=== PATIENT | male | born 1960 | race Caucasian/White ===

== ENCOUNTER 2016-11-07 18:53 | Inpatient (IN) | payer MEDICARE, OTHER ==
[2016-11-07] MEDS ORDERED: Rocephin 1000 MG INJ** 1,000 MG in Sodium Chloride 0.9% 100 ML IVPB 100 ML IV ONE (19:01)
[2016-11-07] MEDS ORDERED: Phenergan 25 MG INJ IV ONE (19:01)
[2016-11-07] MEDS ORDERED: Xopenex 1.25 MG/0.5 ML UD NEBULE IH ONE ×2 (19:01→19:33)
[2016-11-07] MEDS ORDERED: Zithromax 500 MG/ 250 ML NaCl Premix 500 MG/250 ML IVPB IV STA (19:01)
[2016-11-07] MEDS ORDERED: Robitussin-Dm Syrup PO ONE (19:01)
--- NOTE | 2016-11-07 19:06 | ERPHSYRPT ---
- History of Present Illness Time Seen by Provider: 11/07/16 18:56 Source: patient Exam Limitations: no limitations Physician History: FOR THE PAST 12 HOURS PT HAS HAD COUGH PRODUCTIVE OF CLEAR PHLEGM, DIAPHORESIS AND NAUSEA WITH COUGHING ONLY; FOR THE PAST 5 HOURS SHORTNESS OF AIR. PT DENIES ABDOMINAL PAIN, VOMITING, RASH. Allergies/Adverse Reactions: ibuprofen Adverse Reaction (Verified 11/07/16 19:07) feels like he is drinking gasoline, sick Home Medications: No Reportable Medications [No Reported Medications] 11/07/16 [History] Hx Tetanus, Diphtheria Vaccination/Date Given: (unknown) Hx Influenza Vaccination/Date Given: Yes Hx Pneumococcal Vaccination/Date Given: Yes - Review of Systems Respiratory: Cough, Dyspnea Abdominal/Gastrointestinal: Nausea, No Abdominal Pain, No Vomiting Endocrine: Excessive Sweating All Other Systems: Reviewed and Negative - Past Medical History Cardiac History: No Pertinent History Respiratory History: COPD Musculoskeletal History: Degenerative Disk Disease, Other (Chronic low back pain and right leg radiculopathy) GI Medical History: Hernia Psycho-Social History: Anxiety, Depression - Past Surgical History Past Surgical History: Yes Musculoskeletal: Orthopedic Surgery Other Surgical History: back surgery, tonsils - Social History Smoking Status: Former smoker Patient Lives Alone: No - Nursing Vital Signs Nursing Vital Signs: Initial Vital Signs Temperature 98.2 F 11/07/16 18:56 Pulse Rate 102 H 11/07/16 18:56 Respiratory Rate 24 11/07/16 18:56 Blood Pressure 195/109 11/07/16 18:56 O2 Sat by Pulse Oximetry 88 L 11/07/16 18:56 Pain Scale Pain Intensity 0 - Physical Exam General Appearance: mild distress, alert Eye Exam: PERRL/EOMI Ears, Nose, Throat Exam: TMs normal, moist mucous membranes, pharyngeal erythema , other (CLEAR DISCHARGE FROM BOTH NARRES) Neck Exam: normal inspection Respiratory Exam: respiratory distress (MILD), rhonchi, wheezing Cardiovascular Exam: normal heart sounds Gastrointestinal/Abdomen Exam: soft, normal bowel sounds Back Exam: normal range of motion Extremity Exam: normal inspection, No pedal edema Neurologic Exam: alert, cooperative Skin Exam: warm, dry SpO2 Interpretation: hypoxic SpO2: 86 Oxygen Delivery: Room Air - Course Nursing assessment & vital signs reviewed: Yes EKG Interpreted by Me: RATE ([id number]), Sinus Rhythm, NORMAL AXIS, NORMAL INTERVALS - Radiology Exams Chest X-ray Interpretation: Interpreted by me, Pneumonia Ordered Tests: Active Orders 24 hr Category Date Time Status Wheelchair Driver STAT Care 11/07/16 19:02 Active Clean Catch Urine Specimen STAT Care 11/07/16 20:25 Active EKG-ER Only STAT Care 11/07/16 19:01 Active IV Insertion STAT Care 11/07/16 19:01 Active Oxygen-ED Only NASAL CANNULA 2 lpm Care 11/07/16 19:01 Active Pulse Oximetry (ED) STAT Care 11/07/16 19:01 Active CHEST 2 VIEWS (PA AND LAT) Stat Exams 11/07/16 19:02 Taken AMYLASE Stat Lab 11/07/16 19:00 Completed BLOOD CULTURE Stat Lab 11/07/16 19:25 Received CBC W DIFF Stat Lab 11/07/16 19:00 Completed CMP Stat Lab 11/07/16 19:00 Completed CULTURE, THROAT Stat Lab 11/07/16 20:00 Received CULTURE,SPUTUM Stat Lab 11/07/16 19:04 Received D-DIMER QUANTITATION Stat Lab 11/07/16 19:14 Completed Erythrocyte Sedimentation Rate Stat Lab 11/07/16 19:00 Completed LIPASE Stat Lab 11/07/16 19:00 Completed STREP SCREEN-BETA A Stat Lab 11/07/16 20:00 Completed TROPONIN Q3H Lab 11/07/16 19:00 Completed TROPONIN Q3H Lab 11/07/16 22:15 Ordered UA W/RFX UR CULTURE Stat Lab 11/07/16 19:04 Ordered Respiratory Nebulizer STAT RT 11/07/16 19:30 Active Medication Summary Generic Name Dose Route Start Last Admin Trade Name Freq PRN Reason Stop Dose Admin Sodium Chloride 1,000 mls @ 100 mls/hr 11/07/16 19:15 11/07/16 19:26 Sodium Chloride 0.9% 1000 Ml IV 12/07/16 19:14 100 mls/hr .Q10H [place] Administration Discontinued Medications Generic Name Dose Route Start Last Admin Trade Name Freq PRN Reason Stop Dose Admin Guaifenesin/Codeine Phosphate Confirm 11/07/16 19:16 Robitussin Ac Syrup Unit Dose Cup Administered 11/07/16 19:17 Dose 10 ml .ROUTE .STK-MED ONE Guaifenesin/Dextromethorphan 10 ml 11/07/16 19:01 11/07/16 19:26 Robitussin-Dm Syrup PO 11/07/16 19:02 10 ml STAT ONE Administration Ceftriaxone Sodium 1,000 mg/ 100 mls @ 100 mls/hr 11/07/16 19:01 11/07/16 19: 26 Sodium Chloride IV 11/07/16 20:00 100 mls/hr STAT ONE Administration Azithromycin 500 mg in 250 mls @ 250 mls/hr 11/07/16 19:01 11/07/16 19:26 Zithromax 500 Mg/ 250 Ml Nacl Premix IV 11/07/16 20:00 250 mls/hr STAT STA Administration Azithromycin Confirm 11/07/16 19:16 Zithromax 500 Mg/ 250 Ml Nacl Premix Administered 11/07/16 19:17 Dose 500 mg in 250 mls @ ud IV .STK-MED ONE Ceftriaxone Sodium/Dextrose Confirm 11/07/16 19:16 Rocephin 1 Gm-D5w 50 Ml Bag Administered 11/07/16 19:17 Dose 1 g in 50 mls @ ud IV .STK-MED ONE Levalbuterol HCl 1.25 mg 11/07/16 19:01 11/07/16 19:32 Xopenex 1.25 Mg/0.5 Ml Ud Nebule IH 11/07/16 19:02 1.25 mg STAT ONE Administration Levalbuterol HCl Confirm 11/07/16 19:33 Xopenex 1.25 Mg/0.5 Ml Ud Nebule Administered 11/07/16 19:34 Dose 1.25 mg IH .STK-MED ONE Promethazine HCl 12.5 mg 11/07/16 19:01 11/07/16 19:25 Phenergan 25 Mg Inj IV 11/07/16 19:02 12.5 mg STAT ONE Administration Promethazine HCl Confirm 11/07/16 19:15 Phenergan 25 Mg Inj Administered 11/07/16 19:16 Dose 25 mg .ROUTE .STK-MED ONE Sodium Chloride Confirm 11/07/16 19:33 Sodium Chloride 3 Ml Ud Nebules Administered 11/07/16 19:34 Dose 3 ml IH .STK-MED ONE Lab/Rad Data: Laboratory Result Diagrams 11/07/16 19:00 11/07/16 19:00 Laboratory Results 11/07/16 11/07/16 11/07/16 Range/Units 20:00 19:22 19:14 WBC (4.0-10.5) K/mm3 RBC (4.1-5.6) M/mm3 Hgb (12.5-18.0) gm/dl Hct (42-50) % MCV (78-100) fl MCH (26-32) pg MCHC (32-36) g/dl RDW (11.5-14.0) % Plt Count (150-450) K/mm3 MPV (6-9.5) fl Gran % (36.0-66.0) % Lymphocytes % (24.0-44.0) % Monocytes % (0.0-12.0) % Eosinophils % (0.00-5.0) % Basophils % (0.0-0.4) % Basophils # (0-0.4) ESR (0-15) mm/hr D-Dimer 430 (0-500) ng/mL Sodium (136-145) mEq/L Potassium (3.5-5.1) mEq/L Chloride (98-107) mEq/L Carbon Dioxide (21-32) mEq/L Anion Gap (5-15) MEQ/L BUN (9-20) mg/dL Creatinine (0.55-1.30) mg/dl Estimated GFR ML/MIN Glucose (70-110) MG/DL Calcium (8.5-10.1) mg/dL Total Bilirubin (0.2-1.0) mg/dL AST (15-37) U/L ALT (12-78) U/L Alkaline Phosphatase (46-116) U/L Troponin I (0.000-0.056) ng/ml Serum Total Protein (6.4-8.2) gm/dL Albumin (3.4-5.0) g/dL Amylase (25-115) U/L Lipase (73-393) U/L Influenza Type A Ag NEGATIVE (NEGATIVE) Influenza Type B Ag NEGATIVE (NEGATIVE) RSV (PCR) NEGATIVE (Negative) Streptococcus Screen NEGATIVE (Negative) 11/07/16 11/07/16 11/07/16 Range/Units 19:00 19:00 19:00 WBC (4.0-10.5) K/mm3 RBC (4.1-5.6) M/mm3 Hgb (12.5-18.0) gm/dl Hct (42-50) % MCV (78-100) fl MCH (26-32) pg MCHC (32-36) g/dl RDW (11.5-14.0) % Plt Count (150-450) K/mm3 MPV (6-9.5) fl Gran % (36.0-66.0) % Lymphocytes % (24.0-44.0) % Monocytes % (0.0-12.0) % Eosinophils % (0.00-5.0) % Basophils % (0.0-0.4) % Basophils # (0-0.4) ESR 13 (0-15) mm/hr D-Dimer (0-500) ng/mL Sodium (136-145) mEq/L Potassium (3.5-5.1) mEq/L Chloride (98-107) mEq/L Carbon Dioxide (21-32) mEq/L Anion Gap (5-15) MEQ/L BUN (9-20) mg/dL Creatinine (0.55-1.30) mg/dl Estimated GFR ML/MIN Glucose (70-110) MG/DL Calcium (8.5-10.1) mg/dL Total Bilirubin (0.2-1.0) mg/dL AST (15-37) U/L ALT (12-78) U/L Alkaline Phosphatase (46-116) U/L Troponin I < 0.017 (0.000-0.056) ng/ml Serum Total Protein (6.4-8.2) gm/dL Albumin (3.4-5.0) g/dL Amylase 33 (25-115) U/L Lipase 107 (73-393) U/L Influenza Type A Ag (NEGATIVE) Influenza Type B Ag (NEGATIVE) RSV (PCR) (Negative) Streptococcus Screen (Negative) 11/07/16 11/07/16 Range/Units 19:00 19:00 WBC 8.2 (4.0-10.5) K/mm3 RBC 4.90 (4.1-5.6) M/mm3 Hgb 15.2 (12.5-18.0) gm/dl Hct 44.9 (42-50) % MCV 91.6 (78-100) fl MCH 31.0 (26-32) pg MCHC 33.9 (32-36) g/dl RDW 15.1 H (11.5-14.0) % Plt Count 251 (150-450) K/mm3 MPV 10.5 H (6-9.5) fl Gran % 70.8 H (36.0-66.0) % Lymphocytes % 14.8 L (24.0-44.0) % Monocytes % 10.6 (0.0-12.0) % Eosinophils % 3.2 (0.00-5.0) % Basophils % 0.6 (0.0-0.4) % Basophils # 0.05 (0-0.4) ESR (0-15) mm/hr D-Dimer (0-500) ng/mL Sodium 141 (136-145) mEq/L Potassium 3.9 (3.5-5.1) mEq/L Chloride 102 (98-107) mEq/L Carbon Dioxide 26.5 (21-32) mEq/L Anion Gap 16.2 H (5-15) MEQ/L BUN 10 (9-20) mg/dL Creatinine 0.94 (0.55-1.30) mg/dl Estimated GFR > 60 ML/MIN Glucose 101 (70-110) MG/DL Calcium 9.2 (8.5-10.1) mg/dL Total Bilirubin 0.70 (0.2-1.0) mg/dL AST 23 (15-37) U/L ALT 40 (12-78) U/L Alkaline Phosphatase 43 L (46-116) U/L Troponin I (0.000-0.056) ng/ml Serum Total Protein 8.7 H (6.4-8.2) gm/dL Albumin 4.2 (3.4-5.0) g/dL Amylase (25-115) U/L Lipase (73-393) U/L Influenza Type A Ag (NEGATIVE) Influenza Type B Ag (NEGATIVE) RSV (PCR) (Negative) Streptococcus Screen (Negative) - Progress Discussed with : Nicanor ([id number]) - Departure Time of Disposition: 20:39 Departure Disposition: Observation Clinical Impression: DEPRESSION, DYSPNEA, PNEUMONIA, COPD, ANXIETY Condition: Stable Critical Care Time: No Referrals: HEIKE ODOM [Primary Care Provider] -
[2016-11-07] MEDS ORDERED: Phenergan 25 MG INJ ONE (19:15)
[2016-11-07] MEDS ORDERED: ROCEPHIN 1 Gm-D5w 50 ml Bag** 1 G/50 ML IVPB IV ONE (19:16)
[2016-11-07] MEDS ORDERED: Zithromax 500 MG/ 250 ML NaCl Premix 500 MG/250 ML IVPB IV ONE (19:16)
[2016-11-07] MEDS ORDERED: Robitussin AC Syrup Unit Dose Cup ONE (19:16)
[2016-11-07] MEDS: Sodium Chloride 0.9% 1000 ML 1,000 ML IV SCH (19:26)
[2016-11-07 19:33] LABS: LIPASE 107 U/L (73-393)
[2016-11-07] MEDS ORDERED: Sodium Chloride 3 ML UD NEBULES IH ONE (19:33)
[2016-11-07 19:34] LABS: BASOPHIL % 0.6 % (0.0-0.4); Eosinophil % 3.2 % (0.00-5.0); Granulocytes % 70.8 % (36.0-66.0); Lymphocytes % 14.8 % (24.0-44.0); Mean Cell Volume 91.6 fl (78-100); Mean Platelet Volume 10.5 fl (6-9.5); Monocytes % 10.6 % (0.0-12.0); Platelet Count 251 K/mm3 (150-450); Red Cell Distribution Width 15.1 % (11.5-14.0); White Blood Count 8.2 K/mm3 (4.0-10.5)
[2016-11-07 19:38] LABS: ALBUMIN 4.2 g/dL (3.4-5.0); ALKALINE PHOSPHATASE 43 U/L (46-116); ANION GAP 16.2 MEQ/L (5-15); BLOOD UREA NITROGEN 10 mg/dL (9-20); CHLORIDE 102 mEq/L (98-107); Carbon Dioxide 26.5 mEq/L (21-32); Glucose 101 MG/DL (70-110); Potassium 3.9 mEq/L (3.5-5.1); SGOT/AST 23 U/L (15-37); SGPT/ALT 40 U/L (12-78); SODIUM 141 mEq/L (136-145); Total Protein 8.7 gm/dL (6.4-8.2)
[2016-11-07 20:40] LABS: ADD URINE CULTURE? NO (NO); Bilirubin NEGATIVE (NEGATIVE); Blood NEGATIVE Ery/ul (0-5); COMPLETE URINE MICROSCOPIC? NO; Collection Type CLEAN CATCH; Glucose NEGATIVE (NEGATIVE); Leukocyte Esterase NEGATIVE (NEGATIVE)
[2016-11-07] MEDS ORDERED: Phenergan 25 MG INJ IV PRN (21:55)
[2016-11-07] MEDS ORDERED: Sodium Chloride 0.9% 1000 ML 1,000 ML IV SCH (21:55)
[2016-11-07] MEDS ORDERED: PROVENTIL 2.5 MG/3 ML NEB IH PRN (21:55)
[2016-11-07] MEDS ORDERED: TYLENOL 325 MG PO PRN (21:55)
[2016-11-07] MEDS: DUONEB 0.5-3 MG/3 ml Neb IH SCH (22:55)
[2016-11-08] MEDS: DUONEB 0.5-3 MG/3 ml Neb IH SCH ×6 (03:15→23:03)
[2016-11-08] MEDS: Sodium Chloride 0.9% 1000 ML 1,000 ML IV SCH ×2 (03:24→20:01)
[2016-11-08 05:56] LABS: BASOPHIL % 0.5 % (0.0-0.4); Eosinophil % 0.9 % (0.00-5.0); Lymphocytes % 12.6 % (24.0-44.0); Mean Cell Volume 94.1 fl (78-100); Mean Platelet Volume 10.3 fl (6-9.5); Platelet Count 226 K/mm3 (150-450); Red Blood Count 4.39 M/mm3 (4.1-5.6); Red Cell Distribution Width 15.1 % (11.5-14.0); White Blood Count 6.5 K/mm3 (4.0-10.5)
[2016-11-08 06:34] LABS: ALBUMIN 3.5 g/dL (3.4-5.0); ALKALINE PHOSPHATASE 34 U/L (46-116); ANION GAP 12.1 MEQ/L (5-15); BLOOD UREA NITROGEN 7 mg/dL (9-20); CHLORIDE 103 mEq/L (98-107); Carbon Dioxide 29.8 mEq/L (21-32); Glucose 117 MG/DL (70-110); SGOT/AST 21 U/L (15-37); SGPT/ALT 27 U/L (12-78); SODIUM 141 mEq/L (136-145); Total Protein 7.6 gm/dL (6.4-8.2)
[2016-11-08 06:38] LABS: TROPONIN < 0.017 ng/ml (0.000-0.056)
--- NOTE | 2016-11-08 09:00 | XRAY ---
Indication: Cough and short of breath. Comparison: None PA/lateral chest hyperinflated with scattered calcified granulomas. Query subtle lingular infiltrate/atelectasis. Remaining heart and lungs unremarkable. Bony thorax intact with mild spinal degenerative changes.
[2016-11-08] MEDS ORDERED: ADVAIR 250-50 DISKUS 14 DOSE IH SCH (09:15)
[2016-11-08] MEDS: ROCEPHIN 1 Gm-D5w 50 ml Bag** 1 G/50 ML IVPB IV SCH (09:49)
[2016-11-08] MEDS: solu-MEDROL 125 MG IV SCH ×3 (09:49→17:06)
--- NOTE | 2016-11-08 09:57 | HP ---
HISTORY OF PRESENT ILLNESS: This is a 56 year-old patient of mine who presented to the emergency room with shortness of breath which he reported started the morning of presentation. He states that he was coughing and pitting stuff up and it seemed to be getting worse. The emergency room doctor thought that he had pneumonia and the patient reports he has history of walking pneumonia 25 years ago which he was hospitalized at [facility] for. He reports that he does smoke one pack per day. He has not thought a lot about quitting but realizes that this may be affecting his breathing. He had some fever and sweating. He reports that he is feeling better this a.m. and was able to eat his breakfast well and has been walking in his room. His oxygen was able to be weaned down. I confirmed with the respiratory therapist that he is currently on 5 liters of oxygen. He does not wear oxygen at home. REVIEW OF SYSTEMS: He denies chest pain. No nausea or vomiting. No diarrhea. He has reported some left toe pain when he stubbed his toe. PAST MEDICAL HISTORY: Anxiety. Lower back pain. Glaucoma. Cataracts. Possible chronic obstructive pulmonary disease. History of tobacco abuse. PAST SURGICAL HISTORY: Benign growth removed from his back. End of the right finger sewn back on. Surgery on his hand after a fracture. MEDICATIONS: None. ALLERGIES: IBUPROFEN. SOCIAL HISTORY: He occasionally drinks alcohol, denies marijuana, no cocaine. He does smoke one pack per day. His mother lives with him. FAMILY HISTORY: His mother is living and has diabetes. His father is and has coronary artery disease and when he was 59. PHYSICAL EXAMINATION: VITAL SIGNS: Temperature current 98F, temperature max 98.7F, heart rate 81 to 105 currently 81, respiratory rate 20 to 24 currently 22, blood pressure 136 to 195 over 79 to 109 and currently 136/67. Oxygen saturation currently 93 to 95% on 5 liters nasal cannula. GENERAL: The patient is lying in bed a pleasant, talkative man in no acute distress. CVS: He has a regular rate and rhythm. No murmurs, gallops or rubs. CHEST: He has decreased breath sounds at the bases. No retractions. Small wheeze and the left base. He reports that he did have an Albuterol treatment this morning. ABDOMEN: Soft, nontender, nondistended with normal bowel sounds. EXTREMITIES: No clubbing, cyanosis or edema. SKIN: Warm, dry and intact. LABORATORY DATA AND TESTS: His white blood cell count was normal at 8.2 on admission and repeat 6.5 this morning. CMP is within normal limits. Serial troponins have been negative. UA negative. Influenza A/B, respiratory syncytial virus and strep were all negative. Chest x-ray was read as possible subtle lingular infiltrate/atelectasis, remaining heart and lungs unremarkable, also scattered calcified granulomas. ASSESSMENT AND PLAN: 1) PNEUMONIA: He was started on ceftriaxone and azithromycin, will continue with these. 2) CHRONIC OBSTRUCTIVE PULMONARY DISEASE EXACERBATION: I am going to add IV steroids as well as Advair. Will continue with Albuterol treatments as needed, continue oxygen as needed. 3) TOBACCO ABUSE: The patient was counseled that he needs to quit smoking tobacco.
[2016-11-08] MEDS: Advair Hfa 115/21 Common canister IH SCH ×2 (10:40→18:42)
[2016-11-08] MEDS: ENOXAPARIN SODIUM SQ SCH (11:24)
[2016-11-08] MEDS: Robitussin AC Syrup Unit Dose Cup PO PRN (17:08)
[2016-11-08] MEDS ORDERED: Zithromax 500 MG/ 250 ML NaCl Premix 500 MG/250 ML IVPB IV SCH (22:00)
[2016-11-09] MEDS: solu-MEDROL 125 MG IV SCH ×2 (00:06→06:11)
[2016-11-09] MEDS: DUONEB 0.5-3 MG/3 ml Neb IH SCH ×3 (03:28→11:05)
[2016-11-09] MEDS: Advair Hfa 115/21 Common canister IH SCH (07:16)
--- NOTE | 2016-11-09 09:02 | PCM.NOTE ---
Date and Time: 11/09/16 0857 Subjective Assessment: He reports that he is feeling much better but that the steroids have made him a little jittery. He was able to skip is 3 am breathing treatment as he was sleeping comfortably. He is down to 2 L NC this AM. He reports that his cough is much better. He has been able to ambulate in his room. He is eating without any problems. - Review of Systems Constitutional: No Symptoms Eyes: No Symptoms Ears, Nose, & Throat: No Symptoms Respiratory: Cough, Other (some cough but improved, wheezing improved) Cardiac: No Symptoms Abdominal/Gastrointestinal: No Symptoms Genitourinary Symptoms: No Symptoms Musculoskeletal: No Symptoms Skin: No Symptoms Objective Exam General Appearance: no apparent distress, obese Neurologic Exam: alert, cooperative, normal mood/affect Skin Exam: normal color, warm, dry, No rash Respiratory Exam: other (distant breath sounds, equal breath sounds, no tachypnea, no retractions.), No accessory muscle use, No crackles/rales, No rhonchi Cardiovascular Exam: regular rate/rhythm, normal heart sounds, No murmur, No friction rub, No gallop Gastrointestinal/Abdomen Exam: soft, normal bowel sounds, No tenderness, No distention Extremity Exam: normal inspection, other (no c/c/e) OBJECTIVE DATA Vital Signs: Vital Signs - 24 hr Temp Pulse Resp BP Pulse Ox 11/09/16 07:04 97.9 F 78 20 132/62 96 11/09/16 07:00 80 18 94 L 11/09/16 04:15 98.0 F 85 15 131/63 96 11/09/16 04:00 15 11/09/16 00:00 15 11/08/16 23:39 98.3 F 77 17 130/59 95 11/08/16 23:06 86 18 97 11/08/16 21:55 97 11/08/16 20:00 12 11/08/16 19:41 98.4 F 93 H 12 122/56 97 11/08/16 19:35 93 L 11/08/16 18:46 93 H 12 97 11/08/16 16:06 98.2 F 82 20 117/53 95 11/08/16 16:03 95 11/08/16 14:58 82 20 98 11/08/16 12:00 20 11/08/16 11:14 98.1 F 84 20 140/80 94 L 11/08/16 10:42 79 22 98 Oxygen-Last 24 hours O2 Percentage 2 Liters = 28% O2 Percentage 2 Liters = 28% O2 Percentage 2 Liters = 28% O2 Percentage 3 Liters = 32% O2 Percentage 3 Liters = 32% O2 Percentage 5 Liters = 40% Pain Assessment - Last Documented Pain Intensity 6 Pain Scale Used FLACC Intake and Output: Intake & Output 11/07/16 11/08/16 11/09/16 11/10/16 06:59 06:59 06:59 06:59 Intake Total 2783 Balance 2783 Weight 127.187 kg Assessment/Plan (1) COPD exacerbation Current Visit: Yes Status: Acute Assessment & Plan: Start to wean down steroids. If he does well off oxygen, will plan to discharge to home today to finish out antibiotics, prednisone and also add advair inhaler and will have him follow up with me in this coming week. If he still needs oxygen, will continue to monitor another day. Code(s): J44.1 - CHRONIC OBSTRUCTIVE PULMONARY DISEASE W (ACUTE) EXACERBATION (2) Lingular pneumonia Current Visit: Yes Status: Acute Assessment & Plan: Continue ceftriaxone and azithromycin. Trying to wean off of oxygen. Code(s): J18.9 - PNEUMONIA, UNSPECIFIED ORGANISM (3) Tobacco abuse Current Visit: Yes Status: Acute Assessment & Plan: Patient counseled that he needs to quit smoking. Code(s): Z72.0 - TOBACCO USE
[2016-11-09] MEDS: ENOXAPARIN SODIUM SQ SCH (11:32)
[2016-11-09] MEDS: ROCEPHIN 1 Gm-D5w 50 ml Bag** 1 G/50 ML IVPB IV SCH (11:32)
[2016-11-09] MEDS: Robitussin AC Syrup Unit Dose Cup PO PRN (11:51)
[2016-11-09 12:34] VITALS: BP 106/51; PULSE 93; O2SAT 93
[2016-11-09] MEDS ORDERED: solu-MEDROL 40 MG IV SCH (14:00)
== END 2016-11-09 13:30 | disposition home or self-care (01) | DRG 194 ==
LOC: ED 18:53 → MED SURG 21:01 → OBSVTOIN 11-08 08:00
PROVIDERS: ADMIT Internal Medicine; ATTEND Internal Medicine
DX: J18.9 Pneumonia, unspecified organism (principal); J44.1 Chronic obstructive pulmonary disease with (acute) exacerbation; Z72.0 Tobacco use; F41.9 Anxiety disorder, unspecified
CPT/HCPCS: 36000; 36415; 71020; 80053; 81002; 82150; 83690; 84484; 85025; 85379; 85652; 87040; 87070; 87430; 87631; 93005; 93041; 93268; 94640; 94760; 94761; 96360; 96361; 96365; 96367; 96374; 99285; G0378; J0456; J0696; J1650; J2550; J2930; A9270-GY

== ENCOUNTER 2024-05-23 09:50 | Emergency (ER) | payer MEDICARE ==
--- NOTE | 2024-05-23 09:54 | ERPHSYRPT ---
- History of Present Illness Time Seen by Provider: 05/23/24 09:54 Source: patient, family Exam Limitations: no limitations Physician History: This is a 64-year-old white male patient who presents to the emergency department by private vehicle secondary to increasing shortness of breath over the last 2 days. Patient denies cough. Patient denies fever. He has no chest pain. There is been some swelling to both feet and ankles. Patient is a daily smoker of tobacco cigarettes. His room air oxygen saturation level is running anywhere between 95 to 98%. Patient is not on any medications. The patient has a history of anxiety, depression, COPD, degenerative disc disease. Differential diagnosis includes but is not limited to cellulitis, COPD exacerbation, upper respiratory infection, myocardial infarction, arrhythmia Timing/Duration: day(s) (2) Activities at Onset: activity Severity of Dyspnea-Max: mild Severity of Dyspnea-Current: mild Possible Cause: no prior episodes Modifying Factors: Improves With: activity (Worsen symptoms), rest (Improves) Associated Symptoms: wheezing, ankle swelling, No cough, No chest pain/discomfort, No fever Allergies/Adverse Reactions: ibuprofen Adverse Reaction (Verified 05/23/24 09:51) feels like he is drinking gasoline, sick Hx Tetanus, Diphtheria Vaccination/Date Given: (unknown) Hx Influenza Vaccination/Date Given: Yes Hx Pneumococcal Vaccination/Date Given: Yes Travel Risk - International Travel Have you traveled outside of the country in past 3 weeks: No - Emerging Infectious Disease Are you exhibiting symptoms associated with any current EIDs: Yes Symptoms: Shortness of Breath - Review of Systems Constitutional: No Symptoms Eyes: No Symptoms Ears, Nose, & Throat: No Symptoms Respiratory: Dyspnea, Dyspnea on Exertion ([place]), Wheezing Cardiac: No Symptoms, No Chest Pain Abdominal/Gastrointestinal: No Symptoms Genitourinary Symptoms: No Symptoms Musculoskeletal: No Symptoms Skin: No Symptoms Neurological: No Symptoms Psychological: No Symptoms Endocrine: No Symptoms Hematologic/Lymphatic: No Symptoms Immunological/Allergic: No Symptoms All Other Systems: Reviewed and Negative - Past Medical History Pertinent Past Medical History: No Neurological History: No Pertinent History ENT History: No Pertinent History Cardiac History: No Pertinent History Respiratory History: COPD Endocrine Medical History: No Pertinent History Musculoskeletal History: Degenerative Disk Disease, Other GI Medical History: Hernia History: No Pertinent History Psycho-Social History: Anxiety, Depression - Past Surgical History Past Surgical History: Yes Musculoskeletal: Orthopedic Surgery Other Surgical History: back surgery, knee surgery, tonsils - Social History Smoking Status: Current every day smoker How long have you smoked: 40 Drug Use: none - Nursing Vital Signs Nursing Vital Signs: Initial Vital Signs O2 Sat by Pulse Oximetry 92 L 05/23/24 09:53 Pain Scale Pain Intensity 0 - Physical Exam General Appearance: no apparent distress, alert, anxiety Eye Exam: PERRL/EOMI, eyes nml inspection Ears, Nose, Throat Exam: hearing grossly normal, normal ENT inspection, normal pharynx Neck Exam: normal inspection, non-tender, supple, full range of motion Respiratory Exam: normal breath sounds, lungs clear, airway intact, No chest tenderness, No respiratory distress Cardiovascular/Chest Exam: normal heart sounds, regular rate/rhythm Abdominal/Gastrointestinal Exam: soft, normal bowel sounds, No tenderness Rectal Exam: not done Extremity Exam: non-tender, normal range of motion, pelvis stable, pedal edema (Mild bilateral feet and ankle swelling with, what appears to be mild cellulitis right foot and ankle) Neurologic Exam: alert, oriented x 3, cooperative, stove fitter II-XII nml as tested, nml cerebellar function, nml station & gait, sensation nml Skin Exam: normal color, warm, dry, other (See above extremity section) Lymphatic Exam: No adenopathy SpO2 Interpretation: normal O2 Delivery: Room Air - Course Nursing assessment & vital signs reviewed: Yes EKG Interpreted by Me: RATE (57), NORMAL AXIS, Right Bundle Branch Block, Other (Prolonged OH interval. QTc is 496. No acute ischemia on today's twelve-lead EKG.) Ordered Tests: Active Orders 24 hr Category Date Time Status EKG-ER Only STAT Care 05/23/24 10:10 Active IV Insertion STAT Care 05/23/24 10:10 Active Pulse Oximetry (ED) STAT Care 05/23/24 10:10 Active CHEST 1 VIEW (PORTABLE) Stat Exams 05/23/24 10:10 Completed BLOOD CULTURE Stat Lab 05/23/24 10:37 Received CBC W DIFF Stat Lab 05/23/24 10:30 Completed CMP Stat Lab 05/23/24 10:30 Completed Lactic Acid Stat Lab 05/23/24 10:10 Completed MAGNESIUM Stat Lab 05/23/24 10:30 Completed NT PRO BNPII Stat Lab 05/23/24 10:30 Completed TROPONIN Q4H Lab 05/23/24 10:30 Completed TROPONIN Q4H Lab 05/23/24 14:15 Ordered TROPONIN Q4H Lab 05/23/24 18:15 Ordered Respiratory Therapy Assessment DAILY RT 05/23/24 10:04 Active Medication Summary Discontinued Medications Generic Name Dose Route Start Last Admin Trade Name Calin PRN Reason Stop Dose Admin Albuterol/Ipratropium 3 ml 05/23/24 10:04 05/23/24 10:12 Ipratropium/Albuterol Sulfate 3 Ml Ampul.Neb IH 05/23/24 10:05 3 ml STAT ONE Administration Albuterol/Ipratropium Confirm 05/23/24 10:10 Ipratropium/Albuterol Sulfate 3 Ml Ampul.Neb Administered 05/23/24 10:11 Dose 3 ml IH .STK-MED ONE Methylprednisolone Sodium 0 mg 05/23/24 10:10 05/23/24 10:34 Succinate 125 mg/ Sterile IV 05/23/24 10:11 125 mg Water 2 ml STAT ONE Administration Methylprednisolone Sodium Succinate Confirm 05/23/24 10:31 Methylprednis Sod Succ 125 Mg/2 Ml Vial Administered 05/23/24 10:32 Dose 125 mg .ROUTE .STK-MED ONE Sterile Water Confirm 05/23/24 10:31 Water For Injection,Sterile 10 Ml Vial Administered 05/23/24 10:32 Dose 10 ml IJ .STK-MED ONE Lab/Rad Data: Laboratory Result Diagrams 05/23/24 10:30 05/23/24 10:30 Laboratory Results 05/23/24 05/23/24 05/23/24 Range/Units 10:37 10:30 10:30 WBC (4.23-9.07) x10^3/uL RBC (4.63-6.08) x10^6/uL Hgb (13.7-17.5) g/dL Hct (40.1-51.0) % MCV (79.0-92.2) fL MCH (25.7-32.2) pg MCHC (32.3-36.5) g/dL RDW (11.6-14.4) % Plt Count (163-337) x10^3/uL MPV (9.4-12.4) fL Gran % (34.0-67.9) % Immature Gran % (Auto) (0.001-0.429) % Nucleat RBC Rel Count (0.00-0.2) % Eos # (Auto) (0.04-0.54) x10^3/uL Immature Gran # (Auto) (0.001-0.031) x10^3u/L Absolute Lymphs (auto) (1.32-3.57) x10^3/uL Absolute Monos (auto) (0.30-0.82) x10^3/uL Absolute Nucleated RBC (0.00-0.012) x10^3u/L Lymphocytes % (21.8-53.1) % Monocytes % (5.3-12.2) % Eosinophils % (0.8-7.0) % Basophils % (0.2-1.2) % Absolute Granulocytes (1.78-5.38) x10^3/uL Basophils # (0.01-0.08) x10^3/uL Sodium 142 (135-145) mmol/L Potassium 3.9 (3.5-5.1) mmol/L Chloride 104 (98-107) mmol/L Carbon Dioxide 27 (22-30) mmol/L Anion Gap 14.8 (5-15) MEQ/L BUN 13 (9-20) mg/dL Creatinine 0.76 (0.66-1.25) mg/dL Estimated GFR 101.0 ML/MIN Glucose 117 H (74-106) mg/dL Lactic Acid (0.4-2.0) Calcium 8.8 (8.4-10.2) mg/dL Magnesium 2.3 (1.6-2.3) mg/dL Total Bilirubin 1.10 (0.2-1.3) mg/dL AST 55 (17-59) U/L ALT 40 (0-50) U/L Alkaline Phosphatase 61 (38-126) U/L Troponin I 0.022 (0.000-0.033) ng/mL NT-Pro-B Natriuret Pep 1410 (<300) pg/mL Serum Total Protein 7.5 (6.3-8.2) g/dL Albumin 4.3 (3.5-5.0) g/dL Influenza Type A Ag NEGATIVE (NEGATIVE) Influenza Type B Ag NEGATIVE (NEGATIVE) RSV (PCR) NEGATIVE (NEGATIVE) SARS-CoV-2 (PCR) NEGATIVE (NEGATIVE) 05/23/24 05/23/24 Range/Units 10:30 10:10 WBC 8.4 (4.23-9.07) x10^3/uL RBC 4.10 L (4.63-6.08) x10^6/uL Hgb 12.5 L (13.7-17.5) g/dL Hct 36.6 L (40.1-51.0) % MCV 89.3 (79.0-92.2) fL MCH 30.5 (25.7-32.2) pg MCHC 34.2 (32.3-36.5) g/dL RDW 13.4 (11.6-14.4) % Plt Count 324 (163-337) x10^3/uL MPV 10.2 (9.4-12.4) fL Gran % 73.4 H (34.0-67.9) % Immature Gran % (Auto) 0.1 (0.001-0.429) % Nucleat RBC Rel Count 0.0 (0.00-0.2) % Eos # (Auto) 0.23 (0.04-0.54) x10^3/uL Immature Gran # (Auto) 0.01 (0.001-0.031) x10^3u/L Absolute Lymphs (auto) 1.32 (1.32-3.57) x10^3/uL Absolute Monos (auto) 0.62 (0.30-0.82) x10^3/uL Absolute Nucleated RBC 0.00 (0.00-0.012) x10^3u/L Lymphocytes % 15.7 L (21.8-53.1) % Monocytes % 7.4 (5.3-12.2) % Eosinophils % 2.7 (0.8-7.0) % Basophils % 0.7 (0.2-1.2) % Absolute Granulocytes 6.17 H (1.78-5.38) x10^3/uL Basophils # 0.06 (0.01-0.08) x10^3/uL Sodium (135-145) mmol/L Potassium (3.5-5.1) mmol/L Chloride (98-107) mmol/L Carbon Dioxide (22-30) mmol/L Anion Gap (5-15) MEQ/L BUN (9-20) mg/dL Creatinine (0.66-1.25) mg/dL Estimated GFR ML/MIN Glucose (74-106) mg/dL Lactic Acid 0.9 (0.4-2.0) Calcium (8.4-10.2) mg/dL Magnesium (1.6-2.3) mg/dL Total Bilirubin (0.2-1.3) mg/dL AST (17-59) U/L ALT (0-50) U/L Alkaline Phosphatase (38-126) U/L Troponin I (0.000-0.033) ng/mL NT-Pro-B Natriuret Pep (<300) pg/mL Serum Total Protein (6.3-8.2) g/dL Albumin (3.5-5.0) g/dL Influenza Type A Ag (NEGATIVE) Influenza Type B Ag (NEGATIVE) RSV (PCR) (NEGATIVE) SARS-CoV-2 (PCR) (NEGATIVE) - Progress Progress: improved, re-examined Air Movement: good Progress Note: 05/23/24 11:20 My medical decision making and the assignment of moderate complexity to this patient's medical issue today is based on review of the patient's past medical history review of the patient's medication list, review the patient drug allergy list, history present illness and physical findings on examination. The workup in this patient includes placement of a intravenous line, CBC, CMP, lactic acid level, twelve-lead EKG, BNP level, viral swabs, chest x-ray, troponin level. Differential diagnosis includes but is not limited to upper respiratory infection, pneumonia, viral illness, COPD exacerbation, CHF, myocardial infarction, arrhythmia 05/23/24 11:27 The final chest x-ray report was interpreted by the radiologist and I reviewed the impression. The impression states no new or acute cardiopulmonary process. 05/23/24 11:44 I interpreted the patient's laboratory data results. Based on the laboratory data results, he has no acute, emergent medical issue. Patient does have mild cellulitis present bilateral feet and ankles right side worse than left. We will remotely send a prescription of Levaquin to his pharmacy. This medication will cover any dermatologic or respiratory infection that is or may be present. We will also send a prescription remotely to his pharmacy for prednisone. Blood Culture(s) Obtained: Yes Antibiotics given: Yes (Outpatient prescription) Counseled pt/family regarding: lab results, diagnosis, need for follow-up, rad results Medical Desision Making - Independent Historian Additional History obtained from: Family - Diagnostic Testing Diagnostic test were ordered, analyzed, and reviewed by me: Yes Radiological Interpretation: Reviewed by me, Teleradiologist Report - Risk of complications The pt has a mod risk of morbidity or mortality based on: Need for prescription drug management - Departure Departure Disposition: Home Clinical Impression: COPD exacerbation, Cellulitis Condition: Stable Critical Care Time: No Referrals: HEIKE ODOM [Primary Care Provider] - Follow up/PCP as directed Instructions: Chronic Obstructive Pulmonary Disease Additional Instructions: Drink plenty of fluids. Take your antibiotics and steroids as prescribed. Call your prescribing provider today, 05/23/2024, to make arrangements for follow-up appointment for further evaluation and management. Prescriptions: Prednisone 10 mg [Deltasone 10 mg] 10 mg PO TID #12 tablet Levofloxacin [Levaquin 500 MG Tablet] 500 mg PO DAILY #7 tablet
[2024-05-23 10:07] VITALS: TEMP 97.4
[2024-05-23] MEDS ORDERED: DUONEB 0.5-3 MG/3 ml Neb IH ONE (10:10)
[2024-05-23] MEDS: DUONEB 0.5-3 MG/3 ml Neb IH ONE (10:12)
[2024-05-23] MEDS ORDERED: solu-MEDROL ONE (10:31)
[2024-05-23] MEDS ORDERED: Sterile H2O 10 ml IJ ONE (10:31)
[2024-05-23] MEDS: solu-MEDROL 125 MG, Sterile H2O 10 ml 2 ML IV ONE (10:34)
[2024-05-23 10:42] LABS: Absolute Neutrophil Ct (ANC) 6.17 x10^3/uL (1.78-5.38); BASOPHIL % 0.7 % (0.2-1.2); Basophil (Absolute #) 0.06 x10^3/uL (0.01-0.08); Eosinophil % 2.7 % (0.8-7.0); Eosinophil (Absolute #) 0.23 x10^3/uL (0.04-0.54); Hematocrit 36.6 % (40.1-51.0); Hemoglobin 12.5 g/dL (13.7-17.5); IMMATURE GRAN # 0.01 x10^3u/L (0.001-0.031); IMMATURE GRAN % 0.1 % (0.001-0.429); Lymphocyte (Absolute #) 1.32 x10^3/uL (1.32-3.57); Lymphocytes % 15.7 % (21.8-53.1); Mean Cell Volume 89.3 fL (79.0-92.2); Mean Corpuscular Hemoglobin 30.5 pg (25.7-32.2); Mean Corpuscular Hgb Concent. 34.2 g/dL (32.3-36.5); Mean Platelet Volume 10.2 fL (9.4-12.4); Monocyte (Absolute #) 0.62 x10^3/uL (0.30-0.82); Monocytes % 7.4 % (5.3-12.2); Neutrophil % 73.4 % (34.0-67.9); Platelet Count 324 x10^3/uL (163-337); Red Cell Distribution Width 13.4 % (11.6-14.4); White Blood Count 8.4 x10^3/uL (4.23-9.07)
[2024-05-23 11:05] LABS: ALBUMIN 4.3 g/dL (3.5-5.0); ANION GAP 14.8 MEQ/L (5-15); BILIRUBIN,TOTAL 1.1 mg/dL (0.2-1.3); Calcium 8.8 mg/dL (8.4-10.2); Creatinine 1 0.76 mg/dL (0.66-1.25); MAGNESIUM 2.3 mg/dL (1.6-2.3); Potassium 3.9 mmol/L (3.5-5.1); Total Protein 7.5 g/dL (6.3-8.2)
--- NOTE | 2024-05-23 11:07 | XRAY ---
Indication: Short of breath. Comparison: November 07, 2016. Portable apical lordotic chest remains hyperinflated with scattered bilateral calcified granulomas. Heart not enlarged. Bony thorax intact again with osteopenia and minimal degenerative changes. No new/acute findings.
[2024-05-23 11:18] LABS: INFLUENZA A NEGATIVE (NEGATIVE); INFLUENZA B NEGATIVE (NEGATIVE); RESPIRATORY SYNCTIAL VIRUS NEGATIVE (NEGATIVE); SARS-CoV-2 Xpert Express NEGATIVE (NEGATIVE)
[2024-05-23 12:26] VITALS: BP 138/68; PULSE 88; RESP 18; O2SAT 98
== END 2024-05-23 12:27 | disposition home or self-care (01) ==
LOC: ED 09:50
DX: J44.1 Chronic obstructive pulmonary disease with (acute) exacerbation (principal); L03.115 Cellulitis of right lower limb; L03.116 Cellulitis of left lower limb; R06.02 Shortness of breath; Z79.52 Long term (current) use of systemic steroids; Z79.899 Other long term (current) drug therapy; Z72.0 Tobacco use
CPT/HCPCS: 0241U; 36415; 71045; 80053; 83605; 83735; 83880; 84484; 85025; 87040; 93005; 94640; 94760; 96374; 99285; 99284; J2919; A9270-GY